=== PATIENT | female | born 1940 | race Caucasian/White ===

== ENCOUNTER 2017-04-23 15:14 | Emergency (ER) | payer BC, OTHER ==
[~2017-04-23] VITALS: Ht 162.6 cm; Wt 55.3 kg
[2017-04-23 17:45] VITALS: BP 158/99
== END 2017-04-23 15:45 | disposition home or self-care (01) ==
LOC: ED 15:14
DX: S09.90XA Unspecified injury of head, initial encounter (principal); I10 Essential (primary) hypertension; E11.9 Type 2 diabetes mellitus without complications; Z79.84 Long term (current) use of oral hypoglycemic drugs; Z79.899 Other long term (current) drug therapy; Z85.3 Personal history of malignant neoplasm of breast; W19.XXXA Unspecified fall, initial encounter; Y93.89 Activity, other specified; Y92.89 Other specified places as the place of occurrence of the external cause; Y99.8 Other external cause status